=== PATIENT | female | born 1960 | race Caucasian/White ===

== ENCOUNTER → 2018-03-30 08:22 | Outpatient (CLI) | payer OTHER, SELFPAY ==
--- NOTE | 2018-03-30 08:29 | BI_ITS ---
MAMMOGRAPHY - BILATERAL SCREENING 3-D MARGOT SYNTHESIS REASON FOR EXAM: Female, 57 years old. Bilateral Screening 3-D tomosynthesis PERTINENT HISTORY: Family history of breast cancer in sister at age 38.. TECHNIQUE: 2-D mammograms and 3-D Margot synthesis of the breast (s) were performed. CAD was performed. COMPARISON: March 24, 2017, March 19, 2016 FINDINGS: The breast composition is there are stable lymph nodes in the left axilla. Scattered benign calcifications are seen. No dense spiculated masses or suspicious microcalcifications are identified. No architectural distortion is identified. There is no skin thickening or retraction. There has been no significant change since the prior study. BI/SCREENING MAMM (CAD), BILAT IMPRESSION: No mammographic signs of malignancy. Routine yearly mammograms recommended. ASSESSMENT CATEGORY: BIRADS Category 2: Benign. A letter regarding these results will be sent to the patient by the facility within 30 days. FOLLOW UP RECOMMENDATION: Yearly follow up mammogram recommended. (A) Approximately 10% of breast cancers are not detected by mammography. A normal mammogram should not delay biopsy of a clinically suspicious abnormality. Electronically Signed: Hitesh Nielsen MD at 10:43 EST , Service support ,
[2018-04-06 08:45] LABS: HPV APTIMA, High Risk Negative (Negative)
== END ==
PROVIDERS: Visit Provider Obstetrics & Gynecology
DX: Z12.31 Encounter for screening mammogram for malignant neoplasm of breast (principal); Z12.4 Encounter for screening for malignant neoplasm of cervix
CPT/HCPCS: 77063; 77067; 87624; 88175; G0145

== ENCOUNTER → 2018-04-19 14:26 | Outpatient (CLI) | payer OTHER, SELFPAY ==
[2018-03-30 09:22] VITALS: BMI 39.4
[2018-04-19 15:49] LABS: Anion Gap 9 (5-15); BUN 20 mg/dL (7-18); BUN/Creat Ratio 17.5 RATIO (10-20); Calcium,Total 9.6 mg/dL (8.5-10.1); Chloride 103 mmol/L (98-107); Creatinine, Serum 1.14 mg/dL (0.55-1.02); EST Glomerular Filtration Rate 52 mL/min (>60); Est Glom Filt Rate - Afr Amer 64 mL/min (>60); Glucose 98 mg/dL (74-106); Potassium 4.1 mmol/L (3.5-5.1); Sodium Level 141 mmol/L (136-145)
--- OUTSIDE RECORDS SUMMARY | 2018-06-24 11:53 | XMS RPT_ITS ---
:1960 Author Organization OHIP Care Team Providers Name Role Phone BROOK OROSCO (DRIVER LICENSE AGENT) Attending Unavailable NIRAJ ARIAS Referring Unavailable ESTEFANI PHAN Admitting Unavailable ESTEFANI PHAN Attending Unavailable BROOK OROSCO (DRIVER LICENSE AGENT) Referring Unavailable RIGO URIARTE Admitting Unavailable RIGO URIARTE Attending Unavailable RIGO URIARTE Primary Care Unavailable MARKIE RECINOS Consulting Unavailable PROVIDER, UNKNOWN Consulting Unavailable PROVIDER, UNKNOWN Consulting Unavailable PROVIDER, UNKNOWN Consulting Unavailable Naty Colbert Attending Unavailable Naty Colbert Attending Unavailable Lavinia Betancourt Attending Unavailable Rigo Uriarte Attending Unavailable Rigo Uriarte Referring Unavailable Markie Recinos Primary Care Unavailable Naty Colbert Attending Unavailable PROBLEMS PROBLEMS DATE TYPE CONDITION / CODE ATTENDING STATUS SOURCE 04/19/2018 Unknown N39.44 - Nocturnal Rigo Uriarte Active [place] enuresis / Community N39.44(ICD-10) Hospital Repository 03/30/2018 Unknown Z01.419 - Encounter [place] Active [place] for gynecological [facility] (general) (routine) Repository without abnormal findings / Z01.419(ICD-10) 03/30/2018 Unknown Z01.411 - Encounter Filemon, Active [place] for gynecological [facility] (general) (routine) Repository with abnormal findings / Z01.411(ICD-10) 03/30/2018 Unknown Z68.39 - Body mass [place] Active [place] index (BMI) [facility] 39.0-39.9, adult / Hospital Z68.39(ICD-10) Repository 02/16/2018 Active Encounter for ESTEFANI PHAN Active [facility] screening for [facility] malignant neoplasm Repository of colon / Z12.11(ICD-10) PROCEDURES PROCEDURES No Procedure Records FoundRESULTS RESULTS SODIUM; SERUM, Collected: 04/27/2018 Status: F Source: [facility] PLASMA 6:20 PM [facility] REPOSITORY TYPE CODE TESTS RESULT OUT OF REFERENCE UNITS RANGE LAB SODIUM(LOIN 136 - 145 mmol/l C) SODIUM 139 Performed By: #### [id number] #### [facility],[address] [place] [address] BASIC METABOLIC Collected: 04/19/2018 Status: F Source: [place] PROFILE (BMP) 2:41 PM [facility] REPOSITORY TYPE CODE TESTS RESULT OUT OF RANGE REFERENCE UNITS LAB L501.0100 74-106 mg/dL Normal GLU 98 Result Comment: Please note revised GLUCOSE reference range effective 2017. LAB L501.1000 7-18 mg/dL High BUN 20 LAB L501.1100 0.55-1.02 mg/dL High CREAT,SERUM 1.14 Result Comment: The validity of the calculated GFR AND GFRAA in patients over 70 years has not been determined. Clinical correlation is essential. LAB L501.1110 >60 mL/min Low EST GFR 52 Result Comment: Non- GFR Calc LAB L501.1115 >60 mL/min Normal EST GFR - AA 64 Result Comment: GFR Calc LAB L501.1300 10-20 RATIO Normal BUN/CRE 17.5 LAB L501.2200 8.5-10.1 mg/dL CA Normal 9.6 LAB L501.5300 136-145 mmol/L NA Normal 141 LAB L501.5600 3.5-5.1 mmol/L K Normal 4.1 LAB L501.5900 98-107 mmol/L CL Normal 103 LAB L501.6100 21.0-32.0 mmol/L Normal CO2 29.0 LAB L501.6200 5-15 Normal GAP 9 Performed By: #### L500.2500 #### [facility] [address] [place], [address] BOOM STICK MAN OFFICE VISIT Observed: 03/30/2018 Status: F Source: [place] REPORT 10:04 AM [facility] REPOSITORY [facility] [place] [address] [place] [address] OFFICE VISIT Date of Service: 03/30/18 MR#: [id number] Acct: [id number] Name: LUCIANA JUNIOR Rep #: [id number] : 1960 Provider: Naty Colbert MD Age/Sex: 57/F Location: [facility] Status: Signed Intake Vital Signs03/30/18 Height 5 ft 1 in 03/30/18 Weight: 209 lb 03/30/18 Body Mass Index (BMI) 39.4 03/30/18 Blood Pressure 112/78 Intake Visit Reasons: ANNUAL Stump Blower Required: No Is patient in pain?: No Allergies Penicillins Adverse Reaction (Unknown, Verified 03/30/18 09:24) unknown Medications mirabegron ER 50 mg tablet,extended release 24 hr 50 mg PO DAILY #30 tab 03/30/18 [Rx Confirmed 03/30/18] Is last menstrual period known: No Post menopausal: No Patient : No : No PFSH Medical History Urge incontinence (Acute) Family History Sister Breast cancer Social History number of children: 2 current occupational status: employed current occupation: [employer] Smoking Status: Never smoker alcohol intake: current alcohol intake frequency: holidays/special occasions only substance use type: does not use seatbelt use: always do you feel safe at home: Yes Pregancy History 2 Elective abortions Hx Para 2 Spontaneous abortions Past Pregnancies Del. DatName GA/WeeksOutcome Route [facility] LgAnesthesDel LocaProviderFOB e ht en tn Unknown Estella e 1988 Unknown Stefanie 1991 HPI ANNUAL: Details: LUCIANA JUNIOR is a 57 year old who presents for annual exam. co incomplete control of urinary urge incontinence- will even have spontaneous leakage overnight if had liquids too late. she had this worked up many years ago by urology. getting some more activity Last PAP: due History of abnormal PAP: no Last mammogram: done History of abnormal mammogram: no Colon cancer screening: up to date 2017- needs to have repeat in 1 year Other preventative health care screenings: dr recinos. has testing at work and normal Female Reproductive History Questions: Sexually active: No, Dyspareunia: No Menopausal Symptoms: No hot flashes, No night sweats, No weight change, No mood changes, No difficulty concentrating, No sleep problems, No change in libido ROS Const Constitutional: Denies night sweats Cardio Card: Denies chest pain Resp Resp: Denies dyspnea or cough GI GI: Reports as per HPI; denies bloating, abdominal pain, constipation, vomiting or nausea : Reports urinary incontinence; denies hot flashes or nipple discharge Skin Skin/Breast: Denies breast pain, breast skin changes, nipple discharge, breast lump or changing lesions Psych Psych: Denies difficulty concentrating or change in sex drive Exam Const General: cooperative, healthy appearing, comfortable, no acute distress, well developed, well groomed [facility] Head: normal to inspection, normocephalic Ears: hearing grossly normal bilaterally, external ears normal Nose: external nose normal Face and sinus: normal facial exam Neck Neck: normal visual inspection, full ROM, no lymphadenopathy Thyroid: thyroid normal Chest Chest palpation AND inspection: normal inspection of the chest Breast inspection: normal inspection of the breasts, normal inspection of the axillae Breast palpation: normal palpation of the breasts, normal palpation of the axillae, no axillary lymphadenopathy Resp Effort AND Inspection: normal respiratory effort GI Inspection: normal to inspection, non-distended Palpation: no guarding, soft, no hepatosplenomegaly General: bladder normal to palpation External Female Exam: normal external appearance, normal appearance of the urethra, no lesions Urethra: normal appearance of the urethra, normal palpation Speculum Exam - Vagina: normal appearance of the vagina, normal vaginal discharge Speculum Exam - Cervix: normal appearance of the cervix, no cervical discharge, no lesions, nontender Bimanual Exam- Vagina AND Uterus: No cervical tenderness, normal bimanual exam, uterine size normal, bladder normal to palpation, uterine mobility normal, uterine consistency normal, uterus non-tender, no cervical motion tenderness Bimanual Exam- Adnexa, other: normal adnexae, no adnexal masses, adnexae non-tender Skin General: no rashes or lesions noted Neuro General: alert, moves all extremities, no focal motor deficits Extrem General: no pedal edema, normal to inspection Psych Appearance: grossly normal Mental Status: mental status grossly normal Affect: normal affect Speech and Movement: speech and movement normal Attitude: cooperative Assessment AND Plan Problems 1. Encounter for gynecological examination with abnormal finding Z01.411 2. BMI 39.0-39.9,adult Z68.39 Plan Cervical cancer screening: [ ] Breast cancer screening: [ ] other health maintenance examination reviewed and orders placed if needed. Encouraged maintenance of a healthy weight and active lifestyle and handout given. Annual exam handout including recommendations for good health guidelines, Calcium/vitamin D recommendations, and basic screening information given. Problem list up to date, see problem list details for any additional plan information. Follow up in one year for annual health maintenance exam or sooner if needed. Orders Orders: Medications New: Coding Level of Care Code Off vis,est,prev 40-64yrs Diagnoses Encounter for gynecological examination with abnormal finding Z01.411 Gynecological examination findings: abnormal findings PRESENT BMI 39.0-39.9,adult Z68.39 03/30/18 1004 <Electronically signed by Naty Colbert MD> Date Naty Colbert MD Cosigner Signature: Date (if applicable) CC: PAP IG HPV APTIMA Collected: 03/30/2018 Status: F Source: [place] 16/18,45 9:40 AM [facility] REPOSITORY Order Comment: CYTOLOGY INFORMATION: - CLINICAL INFORMATION: ANNUAL - DATE LMP/MENOPAUSE: N/A - COLLECTION VIAL: Thin Prep Vial - AEROBICS TEACHER SOURCE: CERVICAL - COLLECTION TECHNIQUE: CX BROOM ONLY Specimen Comment: [id number] Specimen Comment: Source.............Cervix Specimen Comment: No. of containers..01 ThinPrep Vial TYPE CODE TESTS RESULT OUT OF REFERENCE UNITS RANGE LAB L7400.0800 . High DIAGN Comment Result Comment: EPITHELIAL CELL ABNORMALITY. ATYPICAL SQUAMOUS CELLS OF UNDETERMINED SIGNIFICANCE. LAB L7400.0900 . Normal ADEQ Comment Result Comment: Satisfactory for evaluation. Endocervical and/or squamous metaplastic cells (endocervical component) are present. LAB L7400.1400 . Normal PERFORM Comment Result Comment: Zainab Phillips, Pack Operator (ASCP) LAB L7400.1700 . Normal SIGN Comment Result Comment: Ashley Meng MD, Pathologist LAB L7400.1720 . Normal Path prov. Comment ICD9 Result Comment: R87.610 LAB L7400.2575 . Normal TEST METHOD Comment Result Comment: This liquid based ThinPrep(R) pap test was screened with the use of an image guided system. LAB L7400.2600 . Normal . COMM LAB L7400.2700 . Normal PAPSMR Comment Result Comment: The Pap smear is a screening test designed to aid in the detection of premalignant and malignant conditions of the uterine cervix. It is not a diagnostic procedure and should not be used as the sole means of detecting cervical cancer. Both false-positive and false-negative reports do occur. LAB L7400.2760 Negative Normal HPV APTIMA, Negative HR Result Comment: This test detects fourteen high-risk HPV types (16/18/31/33/35/39/45/ 51/52/56/58/59/66/68) without differentiation. Performed at: [address] [id number] City Driver: Mis Marin MD, Phone: [phone] Performed at: =G - [facility] [address], [place] [id number] City Driver: Mis Marin MD, Phone: [phone] Performed By: #### L7400.0280 #### [facility] (refer to report for specific site) refer to report for address and phone number SCREENING MAMM (CAD), Observed: 03/30/2018 Status: F Source: [place] 8:29 AM [facility] REPOSITORY [facility] Imaging Services [address] [place] [address] SCREENING MAMM (CAD), BILAT MR#: [id number] Acct: [id number] Name: LUCIANA JUNIOR Rep #: [id number] : 1960 F 57 From: Hitesh Nielsen MD PCP: Care Physician, No Primary Status: REG CLI Study: SCREENING MAMM (CAD), BILAT Date of Exam: 03/30/18 Exam# [id number] Ordering Dr: Naty Colbert MD MAMMOGRAPHY - BILATERAL SCREENING 3-D BURTON SYNTHESIS REASON FOR EXAM: Female, 57 years old. Bilateral Screening 3-D tomosynthesis PERTINENT HISTORY: Family history of breast cancer in sister at age 38.. TECHNIQUE: 2-D mammograms and 3-D Burton synthesis of the breast (s) were performed. CAD was performed. COMPARISON: March 24, 2017, March 19, 2016 FINDINGS: The breast composition is there are stable lymph nodes in the left axilla. Scattered benign calcifications are seen. No dense spiculated masses or suspicious microcalcifications are identified. No architectural distortion is identified. There is no skin thickening or retraction. There has been no significant change since the prior study. BI/SCREENING MAMM (CAD), BILAT IMPRESSION: No mammographic signs of malignancy. Routine yearly mammograms recommended. ASSESSMENT CATEGORY: BIRADS Category 2: Benign. A letter regarding these results will be sent to the patient by the facility within 30 days. FOLLOW UP RECOMMENDATION: Yearly follow up mammogram recommended. (A) Approximately 10% of breast cancers are not detected by mammography. A normal mammogram should not delay biopsy of a clinically suspicious abnormality. Electronically Signed: Hitesh Nielsen MD at 10:43 EST , Service support , CC: No Primary Care Physician; Naty Colbert MD Naval Aircrewman: Signed NURSING PROG Observed: 02/16/2018 Status: COMPLETED Source: [place] 10:45 AM [facility] REPOSITORY [place]NO ID: [id number] Author: Doris Ramirez RN Service: (none) Author Type: Registered Nurse Type: Nursing Progress Note Filed: 02/16/2018 4:45 PM Note Text: Patient did not experience a fall prior to discharge. Patient did not experience a burn prior to discharge. Doris Ramirez RN NURSING PROG Observed: 02/16/2018 Status: COMPLETED Source: [place] 9:55 AM [facility] REPOSITORY [facility] ID: [id number] Author: Doris Ramirez RN Service: (none) Author Type: Registered Nurse Type: Nursing Progress Note Filed: 02/16/2018 10:20 AM Note Text: Pt sitting up in bed tolerating snack and drink. Denies pain or nausea. Daughter at bedside. Abd soft and nondistended. No complaints. Awaiting Dr. Phan to speak with them. Doris Ramirez RN PT ED Observed: 02/16/2018 Status: COMPLETED Source: [place] 9:55 AM [facility] REPOSITORY [facility] ID: [id number] Author: Doris Ramirez RN Service: (none) Author Type: Registered Nurse Type: Patient Education Filed: 02/16/2018 10:21 AM Note Text: POST OP LEARNING RESPONSE INSTRUCTION PROVIDED TO: Patient and Daughter METHOD OF INSTRUCTION: Individual instruction Written instruction - handouts Verbal instruction PATIENT / FAMILY RESPONSE: Verbalizes understanding of: MEDICAL REGIMEN-Importance of following prescribed medical regimen POST-PROCEDURE INSTRUCTIONS-Correct actions to take to reduce post procedure complications WORSENING CONDITION-Signs and symptoms of a worsening condition that warrant a call to the physician FOLLOW-UP PLAN: Patient instructed to call with any further issues Follow up phone call. Contact information given. SUPPLEMENTAL MATERIAL: Procedure discharge instructions REFERRAL (RECOMMENDATION): None Electronically Signed By: Doris Ramirez RN In Department: AMBULATORY SURGERY NURSING PROG Observed: 02/16/2018 Status: COMPLETED Source: [place] 9:34 AM [facility] REPOSITORY [facility]NO ID: [id number] Author: Nasima Longoria RN Service: (none) Author Type: Registered Nurse Type: Nursing Progress Note Filed: 02/16/2018 9:38 AM Note Text: Patient arrived to PACU, on left side, abdomen soft. Patient resting comfortably. Passing flatus without problems. Nasima Longoria RN NURSING PROG Observed: 02/16/2018 Status: COMPLETED Source: [place] 9:32 AM [facility] REPOSITORY [facility]NO ID: [id number] Author: Kay Vázquez RN Service: Nursing Author Type: Registered Nurse Type: Nursing Progress Note Filed: 02/16/2018 9:32 AM Note Text: Patient did not experience a fall within the Intraoperative area. Patient did not experience a burn within the Intraoperative area. Kay Vázquez RN NURSING PROG Observed: 02/16/2018 Status: COMPLETED Source: [place] 9:00 AM [facility] REPOSITORY [facility] ID: [id number] Author: Doris Ramirez RN Service: (none) Author Type: Registered Nurse Type: Nursing Progress Note Filed: 02/16/2018 10:17 AM Note Text: [facility] PRE-OP NURSING HAND OFF NOTE SBAR Hand off given to Kay Vázquez RN. Hand off was communicated verbally and at the patient's bedside and all questions were answered. FALLS/NUNEZ Patient did not experience a fall within the Preoperative area. Patient did not experience a burn within the Preoperative area. Doris Ramirez RN PT ED Observed: 02/16/2018 Status: COMPLETED Source: [place] 8:40 AM [facility] REPOSITORY HNO ID: [id number] Author: Doris Ramirez RN Service: (none) Author Type: Registered Nurse Type: Patient Education Filed: 02/16/2018 8:45 AM Note Text: PRE OP LEARNING ASSESSMENT PROCEDURE/SURGERY: GI PROCEDURES: Colonoscopy READINESS TO LEARN COGNITIVE ABILITY: Alert and oriented MOTIVATION TO LEARN: Eager FAMILY SUPPORT: High - Very involved in pt care PATIENT LEARNS BEST BY: Multiple Methods FACTORS AFFECTING LEARNING: None PHYSICAL LIMITATIONS AFFECTING LEARNING: None Electronically Signed By: Doris Ramirez RN In Department: AMBULATORY SURGERY HOSP Observed: 01/27/2018 Status: COMPLETED Source: [place] 12:00 AM [facility] REPOSITORY Patient:Luciana Junior MRN: <[id number]> Height:5' 1(1.549 m) Weight:207 lb (93.895 kg) Outpatient Medications as of 02/16/18: oxybutynin ER (DITROPAN XL) 15 mg 24 hr Extended Rel Tab calcium, elemental, Tab Admission/Clinic Administered Medications as of 02/16/18: lactated ringers infusion Problem List: OAB (overactive bladder) [N32.81] Allergies: Penicillin G Date Verified: 02/16/18 Lab Values No results within the last 30 days for the following basenames: K,HCT No progress notes entered within the past 30 days HISTORY PHYSICAL Observed: 01/23/2018 Status: COMPLETED Source: [place] 2:40 PM [facility] REPOSITORY [facility] ID: [id number] Author: Brook Jerez) Kwesi Service: (none) Author Type: Nurse Practitioner Type: HANDP Filed: 01/23/2018 3:19 PM Note Text: Luciana Kirkb a 57 year old female who is returning for surveillance colonoscopy. Her PCP is Dr. Micah Recinos. The patient was seen by Dr. Arias for screening colonoscopy 02/09/13. The procedure report has been reviewed and findings as follows: Findings: ?? ? A flat polyp was found in the transverse colon. The polyp was 6 mm in ?? ? size. The polyp was removed with a piecemeal technique using a hot ?? ? snare. Resection and retrieval were complete. Estimated blood loss was ?? ? minimal. Estimated blood loss was minimal. Impression: ?- One 6 mm polyp in the transverse colon. Resected and ? retrieved. Recommendation: ? ? ?- Await pathology results. ? - Regular diet indefinitely. ? - Repeat colonoscopy in 5 years for surveillance after ? piecemeal polypectomy. FINAL DIAGNOSIS Transverse colon polyp, biopsy - Changes suggestive of mucosal prolapse. - Adenomatous epithelium not identified. Presenting complaint: The patient denies change in bowel habits, rectal bleeding or abdominal pain. Having a bowel movement at least once a day. She notes having hemorrhoids, but denies any blood or adverse effects. REVIEW OF SYSTEMS: GENERAL: No unplanned weight loss. RESPIRATORY: Negative for cough, hemoptysis, wheezing, COPD, dyspnea or shortness of breath CARDIOVASCULAR: Negative for chest pain, leg swelling, hypertension, CHF or palpitations GI: The patient states that her appetite has been good. She does get hungry. There has been no nausea, no vomiting. She denies dysphagia and denies odynophagia. There has not been indigestion or heartburn. There has not been regurgitation. Bowel habits have been regular. There has not been diarrhea. There has not been constipation. The patient denies rectal bleeding. There has not been melena. No abdominal pain. : Positive for incontinence nocturnal - on prescription. 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 LMP: Hit and miss - seeing Dr. Colbert. HEMATOLOGY/LYMPHOLOGY Negative for prolonged bleeding, bruising easily or swollen nodes ENDOCRINE: No thyroid or diabetes. NEURO: No history of headaches, syncope, paralysis, seizures or tremors All other reviewed and negative other than HPI. PAST MEDICAL HISTORY Diagnosis Date - Dysplasia of cervix, unspecified 2001 - OAB (overactive bladder) urge incontinence PAST SURGICAL HISTORY Procedure Laterality Date - COLONOSCOP W/ OR W/O [facility] SPEC 02/09/13 Colonoscopy - VULVA/PERINE LOOP ELECTRO EXCIS 05/09/2001 [facility] HISTORY Problem Relation Age of Onset - Cancer Father lung- - Breast Cancer Sister - Ischemic Heart Disease Paternal Grandfather mi - Hypertension Brother - Cancer Paternal Aunt Current Outpatient Prescriptions: oxybutynin ER (DITROPAN XL) 15 mg 24 hr Extended Rel Tab Take 1 tablet by mouth once daily. Disp: 30 tablet Rfl: 12 calcium, elemental, Tab Take 1 tablet by mouth twice daily. Disp: Rfl: 0 No current facility-administered medications for this visit. SOCIAL HISTORY: Patient is single. She has never smoked and reports her alcohol use as very rarely. PHYSICAL EXAMINATION: Blood pressure 143/93, pulse 62, height 154.9 cm (5' 1), weight 93.9 kg (207 lb), last menstrual period 01/02/2018. General Appearance: Well appearing, alert, in no acute distress, well-hydrated, well nourished. Skin: Skin color, texture, turgor normal, no suspicious rashes or lesions. Head: Normocephalic, no masses, lesions or abnormalities. Eyes: Anicteric sclera. Neck: Supple, no adenopathy; thyroid symmetric, normal size. Lungs: Lungs clear to auscultation. No wheezing, rhonchi, rales. Heart: RRR without murmur. Abdomen: Normal abdominal exam, Abdomen soft, non-tender. Bowel sounds normal. No masses, organomegaly. Extremities: No deformities, edema. Peripheral Pulses: Normal. Neurologic: Gait normal. Reflexes normal and symmetric. Sensation grossly intact. Impression: colorectal cancer screening Plan: This patient will be scheduled for a colonoscopy, using Miralax and Dulcolax as the prep. The preparation, as well as the procedure, has been explained in detail. The risks, benefits, anticipated outcomes and possible complications were mentioned. I explained the procedure in understandable terms and the patient was given printed material concerning the planned procedure. The patient had the opportunity to ask questions concerning the planned procedure. The patient freely consents to the planned procedure. The patient is asked to call with any questions for concerns, or should there be any change in health status between now and the scheduled procedure. MA I have personally interviewed and examined this patient. I have read the information the MA documented in this encounter. I spent 25 minutes in the visit, with more than 50% of the total [id number] time of the visit in counseling / coordination of care. Brook Orosco RN APRN.ARJUN WEIR Observed: 01/23/2018 Status: COMPLETED Source: [place] 2:40 PM [facility] REPOSITORY Office Visit ([facility]) LUCIANA JUNIOR ([id number]) 1960 F Date Time Provider Department 01/23/18 2:40 PM BROOK OROSCO (MAGDY) [facility] During your visit today, we recorded the following information about you: Pulse Blood pressure Weight Height 62/minute 143/93 93.9 kg 1.549 m Last Period 01/02/18 Brook Orosco RN APRN.ARJUN 01/23/2018 3:19 PM Signed Luciana Sandie Junior a 57 year old female who is returning for surveillance colonoscopy. Her PCP is Dr. Micah Recinos. The patient was seen by Dr. Arias for screening colonoscopy 02/09/13. The procedure report has been reviewed and findings as follows: Findings: ?? ? A flat polyp was found in the transverse colon. The polyp was 6 mm in ?? ? size. The polyp was removed with a piecemeal technique using a hot ?? ? snare. Resection and retrieval were complete. Estimated blood loss was ?? ? minimal. Estimated blood loss was minimal. Impression: ?- One 6 mm polyp in the transverse colon. Resected and ? retrieved. Recommendation: ? ? ?- Await pathology results. ? - Regular diet indefinitely. ? - Repeat colonoscopy in 5 years for surveillance after ? piecemeal polypectomy. FINAL DIAGNOSIS Transverse colon polyp, biopsy - Changes suggestive of mucosal prolapse. - Adenomatous epithelium not identified. Presenting complaint: The patient denies change in bowel habits, rectal bleeding or abdominal pain. Having a bowel movement at least once a day. She notes having hemorrhoids, but denies any blood or adverse effects. REVIEW OF SYSTEMS: GENERAL: No unplanned weight loss. RESPIRATORY: Negative for cough, hemoptysis, wheezing, COPD, dyspnea or shortness of breath CARDIOVASCULAR: Negative for chest pain, leg swelling, hypertension, CHF or palpitations GI: The patient states that her appetite has been good. She does get hungry. There has been no nausea, no vomiting. She denies dysphagia and denies odynophagia. There has not been indigestion or heartburn. There has not been regurgitation. Bowel habits have been regular. There has not been diarrhea. There has not been constipation. The patient denies rectal bleeding. There has not been melena. No abdominal pain. : Positive for incontinence nocturnal - on prescription. 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 LMP: Hit and miss - seeing Dr. Colbert. HEMATOLOGY/LYMPHOLOGY Negative for prolonged bleeding, bruising easily or swollen nodes ENDOCRINE: No thyroid or diabetes. NEURO: No history of headaches, syncope, paralysis, seizures or tremors All other reviewed and negative other than HPI. PAST MEDICAL HISTORY Diagnosis Date - Dysplasia of cervix, unspecified 2001 - OAB (overactive bladder) urge incontinence PAST SURGICAL HISTORY Procedure Laterality Date - COLONOSCOP W/ OR W/O BRS SPEC 02/09/13 Colonoscopy - VULVA/PERINE LOOP ELECTRO EXCIS 05/09/2001 LEEP FAMILY HISTORY Problem Relation Age of Onset - Cancer Father lung- - Breast Cancer Sister - Ischemic Heart Disease Paternal Grandfather mi - Hypertension Brother - Cancer Paternal Aunt Current Outpatient Prescriptions: oxybutynin ER (DITROPAN XL) 15 mg 24 hr Extended Rel Tab Take 1 tablet by mouth once daily. Disp: 30 tablet Rfl: 12 calcium, elemental, Tab Take 1 tablet by mouth twice daily. Disp: Rfl: 0 No current facility-administered medications for this visit. SOCIAL HISTORY: Patient is single. She has never smoked and reports her alcohol use as very rarely. PHYSICAL EXAMINATION: Blood pressure 143/93, pulse 62, height 154.9 cm (5' 1), weight 93.9 kg (207 lb), last menstrual period 01/02/2018. General Appearance: Well appearing, alert, in no acute distress, well-hydrated, well nourished. Skin: Skin color, texture, turgor normal, no suspicious rashes or lesions. Head: Normocephalic, no masses, lesions or abnormalities. Eyes: Anicteric sclera. Neck: Supple, no adenopathy; thyroid symmetric, normal size. Lungs: Lungs clear to auscultation. No wheezing, rhonchi, rales. Heart: RRR without murmur. Abdomen: Normal abdominal exam, Abdomen soft, non-tender. Bowel sounds normal. No masses, organomegaly. Extremities: No deformities, edema. Peripheral Pulses: Normal. Neurologic: Gait normal. Reflexes normal and symmetric. Sensation grossly intact. Impression: colorectal cancer screening Plan: This patient will be scheduled for a colonoscopy, using Miralax and Dulcolax as the prep. The preparation, as well as the procedure, has been explained in detail. The risks, benefits, anticipated outcomes and possible complications were mentioned. I explained the procedure in understandable terms and the patient was given printed material concerning the planned procedure. The patient had the opportunity to ask questions concerning the planned procedure. The patient freely consents to the planned procedure. The patient is asked to call with any questions for concerns, or should there be any change in health status between now and the scheduled procedure. FLORECITA I have personally interviewed and examined this patient. I have read the information the MA documented in this encounter. I spent 25 minutes in the visit, with more than 50% of the total [id number] time of the visit in counseling / coordination of care. Brook Orosco RN CABLE ASSEMBLER.ARJUN Orosco RN APRN.ARJUN 01/23/2018 3:05 PM Signed Please follow the provided instructions for colonoscopy. You will be using Miralax and Dulcolax, as the laxative during the preparation. You may start the laxative as early as 1:00 in the afternoon. Please call the fuse cup expander, at the number provided, to schedule your procedure. The endoscopy staff will call you the day before the procedure with specific on arrival time. (Tuesday for Tuesday procedures). Hugo 02/13 Mckenna 02/14 AND . Sylvester is 02/15 AND 02/16 Referring Provider: NIRAJ ARIAS [[id number]] Allergies As of Date: 01/23/2018 Noted Allergy Reaction PENICILLIN G 01/19/2005 2 - Rash Date Reviewed: 01/23/2018 Reviewed by: Seema Haro Ma - Fully Assessed Reason for Visit: Colonoscopy Consult [Other] Primary Visit Diagnosis:History of colonic polyps [Z86.010] Order(s):COLONOSCOPY, SCREENING, HIGH RISK [[id number]] Order #: [id number] FUTURE Prescriptions as of 01/23/2018 Sig: OXYBUTYNIN CHLORIDE ER 15 MG * Take 1 tablet by mouth once d* CALCIUM 500 MG TABLET Take 1 tablet by mouth twice * Problem List As Of Date 01/23/2018 Noted Resolved OAB (overactive bladder) [N32.81] INVALID FOR* Other instructions from your clinician: Please follow the provided instructions for colonoscopy. You will be using Miralax and Dulcolax, as the laxative during the preparation. You may start the laxative as early as 1:00 in the afternoon. Please call the fuse cup expander, at the number provided, to schedule your procedure. The endoscopy staff will call you the day before the procedure with specific on arrival time. (Tuesday for Tuesday procedures). Hugo 02/13 Mckenna 02/14 AND . Sylvester is 02/15 AND 02/16 Encounter Status:Closed by BROOK OROSCO CNP on 01/23/18 ALLERGIES ALLERGIES DATE TYPE / CODE NAME / CODE REACTION SEVERITY SOURCE 03/30/2018 Drug Penicillins/F0010 Unknown Unknown Tadeo Allergy/416 41815(RXNORM) [facility] [id number]([facility] ED CT) Repository 01/19/2005 DRUG PENICILLIN G RASH Med [facility] INGREDI/[address] [place] [id number]([facility] ED CT) ENCOUNTERS ENCOUNTERS ADMIT/DISCHARGE ACCOUNT ADMITTING ENCOUNTER LOCATION SOURCE NUMBER CLASS 04/27/2018/04/27/19 [id number] [place], Ambulatory [facility] Repository 04/19/2018 [id number] [facility] ing:MTLAB Repository 04/19/2018 [id number] Ambulatory BMSBuilding:Jamila Piedra MS.[facility] Repository 03/30/2018/03/30/20 [id number] Ambulatory BMSBuilding:Jamila Piedra 18 MS.[facility] Repository 03/30/2018 [id number] [facility] ing:OPBI Repository 03/22/2018 [id number] Ambulatory BMSBuilding:Jamila Piedra MS.[facility] Repository 02/16/2018/02/17/20 [id number] ESTEFANI PHAN Ambulatory [address] Repository 01/23/2018/01/25/20 [id number] Ambulatory [address] Repository PAYERS PAYERS ENCOUNTER GUARANTOR PAYER SUBSCRIBER SOURCE 04/27/2018 LUCIANA HOLCOMBDOB: Primary LUCIANA A James Antony [id number] Insurance:MEDICAL HOLCOMBDOB: [facility] [id number] [address] [place]ository [place] [address]Cfn: Number: [address], [id number] [phone] () Date:Plan Name: 04/19/2018 LUCIANA A Primary LUCIANA A Tadeo [id number] Insurance:MEDICAL HOLCOMBDOB: [address] [id number] [facility] [address]Cix: Number: Repository [id number] (HP) Date:2018-04-19[address] [place] [id number]: 04/19/2018 Secondary NOT GIVENUNK Tadeo Insurance:SELF PAY [facility] Number: Effective Repository Date:2018-04-19 04/19/2018 LUCIANA [id number] Primary LUCIANA HOLCOMBDOB: [address] Insurance:MEDICAL [id number] [address]Xvg: Number: Repository [id number] (HP) Date:2018-04-19[address] [place] [id number]: 04/19/2018 Secondary NOT GIVENUNK Tadeo Insurance:SELF PAY [facility] Number: Effective Repository Date:2018-04-19 03/30/2018 LUCIANA [id number] Primary LUCIANA HOLCOMBDOB: [place] [address] Insurance:MEDICAL [id number] [address]Ugg: Number: Repository [id number] (HP) Date:2017-11-30[address] [place] [id number]: 03/30/2018 Secondary NOT GIVENUNK [place] Insurance:SELF PAY [facility] Number: Effective Repository Date:2018-03-30 03/30/2018 LUCIANA [id number] Primary LUCIANA HOLCOMBDOB: [address] Insurance:MEDICAL [id number] [address]Xvq: Number: Repository [id number] (HP) Date:2017-11-30[address] [place] [id number]: 03/30/2018 Secondary NOT GIVENUNK [place] Insurance:SELF PAY [facility] Number: Effective Repository Date:2017-11-30 03/22/2018 LUCIANA [id number] Primary NOT GIVENUNK [address] Insurance:SELF PAY [address] [address]Tkz: Number: Effective Repository Date:2017-11-30 ()
== END ==
PROVIDERS: Family Provider Family Medicine; PCP Family Medicine; Referring Provider Urology; Visit Provider Urology
DX: N39.44 Nocturnal enuresis (principal)
CPT/HCPCS: 36415; 80048

== ENCOUNTER → 2019-10-03 07:20 | Outpatient (CLI) | payer OTHER, SELFPAY ==
[2018-03-30 09:22] VITALS: BMI 39.4
--- NOTE | 2019-10-03 07:20 | BI_ITS ---
MAMMOGRAPHY - BILATERAL SCREENING REASON FOR EXAM: Female, 59 years old. Routine annual screening examination. PERTINENT HISTORY: Sister with breast cancer. TECHNIQUE: Digital bilateral breast margot (3D mammographic acquisition) in the CC and MLO projections. 2-D mediolateral oblique (MLO) and craniocaudad (CC) views of both breasts were obtained. CAD: Full Field Digital Mammography with Computer Added Detection was performed. COMPARISON: Comparison is made with prior examination dated March 30, 2018. FINDINGS: Breast Composition: The breasts are heterogeneously dense, which may obscure small masses. There are no dominant masses or suspicious calcifications. No other significant abnormalities are identified. There has been no significant change since the prior study. BI/SCREEN MAMM (CAD) W/MARGOT BILAT IMPRESSION: Stable bilateral screening mammogram. Yearly follow-up mammogram recommended. (A) ASSESSMENT CATEGORY: BIRADS Category 1: Negative. A letter regarding these results will be sent to the patient by the facility within 30 days. Approximately 10% of breast cancers are not detected by mammography. A normal mammogram should not delay biopsy of a clinically suspicious abnormality. [id number] Electronically Signed: Alonso Quintero, at 8:30 EDT , Service support ,
[2019-10-03 09:26] LABS: Vitamin D,25 Hydroxy 56.8 ng/mL
[2019-10-03 09:34] LABS: ALB/GLOB Ratio 1.1 RATIO (0.9-2.4); AST(SGOT) 22 U/L (15-37); Alanine Aminotransfer ALT/SGPT 30 U/L (13-56); Alkaline Phosphatase 62 U/L (45-117); Anion Gap 5 (5-15); BUN 27 mg/dL (7-18); BUN/Creat Ratio 28.1 RATIO (10-20); Calcium,Total 8.9 mg/dL (8.5-10.1); Chloride 104 mmol/L (98-107); Cholesterol 254 mg/dL (200); Creatinine, Serum 0.96 mg/dL (0.55-1.02); EST Glomerular Filtration Rate 64 mL/min (>60); Est Glom Filt Rate - Afr Amer 77 mL/min (>60); Globulin 3.8 g/dL (2.2-4.2); Glucose 104 mg/dL (74-106); High Density Lipoprotein 96 mg/dL; Potassium 4.1 mmol/L (3.5-5.1); Protein, Total 7.8 g/dL (6.4-8.2); Sodium Level 140 mmol/L (136-145); Thyroid Stim Hormone (TSH) 2.13 uIU/mL (0.358-3.74); Triglycerides 56 mg/dL; Very Low Density Lipoprotein 11 mg/dL (5-40)
[2019-10-11 05:46] LABS: HPV APTIMA, High Risk Negative (Negative)
== END ==
PROVIDERS: Family Provider Family Medicine; PCP Family Medicine; Referring Provider Obstetrics & Gynecology; Visit Provider Obstetrics & Gynecology
DX: Z12.31 Encounter for screening mammogram for malignant neoplasm of breast (principal); Z13.1 Encounter for screening for diabetes mellitus; Z13.21 Encounter for screening for nutritional disorder; Z13.220 Encounter for screening for lipoid disorders
CPT/HCPCS: 36415; 77063; 77067; 80053; 80061; 82306; 84443; 87624; 88175; G0145

== ENCOUNTER → 2020-10-09 07:42 | Outpatient (CLI) | payer OTHER, SELFPAY ==
[2019-10-03 08:15] VITALS: BMI 39.4
--- NOTE | 2020-10-09 07:47 | BI_ITS ---
MAMMOGRAPHY - BILATERAL SCREENING REASON FOR EXAM: Female, 60 years old. Routine annual screening examination. PERTINENT HISTORY: Sister with breast cancer. TECHNIQUE: Digital bilateral breast margot (3D mammographic acquisition) in the CC and MLO projections. 2-D mediolateral oblique (MLO) and craniocaudad (CC) views of both breasts were obtained. CAD: Full Field Digital Mammography with Computer Added Detection was performed. COMPARISON: Comparison is made with prior study dated 10/03/2019 and 03/30/2018. FINDINGS: Breast Composition: The breasts are heterogeneously dense, which may obscure small masses. There are no dominant masses or suspicious calcifications. No other significant abnormalities are identified. There has been no significant change since the prior study. BI/SCRN MAMM (CAD)W/MARGOT BILAT IMPRESSION: Stable bilateral screening mammogram. Yearly follow-up mammogram recommended. (A) ASSESSMENT CATEGORY: BIRADS Category 1: Negative. A letter regarding these results will be sent to the patient by the facility within 30 days. Approximately 10% of breast cancers are not detected by mammography. A normal mammogram should not delay biopsy of a clinically suspicious abnormality. [id number] Electronically Signed: Alonso Quintero MD at 8:58 EDT , Service support ,
== END ==
PROVIDERS: PCP Family Medicine; Referring Provider Obstetrics & Gynecology; Visit Provider Obstetrics & Gynecology
DX: Z12.31 Encounter for screening mammogram for malignant neoplasm of breast (principal); N93.0 Postcoital and contact bleeding
CPT/HCPCS: 77063; 77067; 87070; 87205

== ENCOUNTER → 2020-10-16 18:21 | Outpatient (CLI) | payer OTHER, SELFPAY ==
[2020-10-09 08:23] VITALS: BMI 39.4
--- NOTE | 2020-10-16 18:34 | US_ITS ---
INDICATION: POST COITAL BLEEDING EXAMINATION: US Pelvis Non-OB Complete TECHNIQUE: Transabdominal and transvaginal pelvic ultrasound was performed. Grayscale, spectral waveform, and color flow Doppler evaluation of the adnexa. COMPARISON: None. FINDINGS: UTERUS: Anteverted. The uterus measures 7.8 x 4.3 x 2.3 cm. There is no uterine mass. The endometrial stripe measures 3 mm in AP diameter which is within normal limits. RIGHT OVARY: Measures 2.6 x 2 x 1 cm. Non-enlarged, normal echogenicity. There is normal arterial inflow and venous outflow present in the right ovary. LEFT OVARY: Measures 2.5 x 2 x 1.3 cm. Non-enlarged, normal echogenicity. There is normal arterial inflow and venous outflow present in the left ovary. FREE FLUID: None. US/Pelvic (Non ) IMPRESSION: Normal pelvic ultrasound. Electronically Signed: Aayush Wang MD at 23:20 EDT Tel , Service support ,
--- NOTE | 2020-10-16 18:46 | US_ITS ---
INDICATION: POST COITAL BLEEDING EXAMINATION: US Pelvis Non-OB Complete TECHNIQUE: Transabdominal and transvaginal pelvic ultrasound was performed. Grayscale, spectral waveform, and color flow Doppler evaluation of the adnexa. COMPARISON: None. FINDINGS: UTERUS: Anteverted. The uterus measures 7.8 x 4.3 x 2.3 cm. There is no uterine mass. The endometrial stripe measures 3 mm in AP diameter which is within normal limits. RIGHT OVARY: Measures 2.6 x 2 x 1 cm. Non-enlarged, normal echogenicity. There is normal arterial inflow and venous outflow present in the right ovary. LEFT OVARY: Measures 2.5 x 2 x 1.3 cm. Non-enlarged, normal echogenicity. There is normal arterial inflow and venous outflow present in the left ovary. FREE FLUID: None. US/Transvaginal Non- IMPRESSION: Normal pelvic ultrasound. Electronically Signed: Aayush Wang MD at 23:20 EDT Tel , Service support ,
== END ==
PROVIDERS: PCP Family Medicine; Referring Provider Obstetrics & Gynecology; Visit Provider Obstetrics & Gynecology
DX: N93.0 Postcoital and contact bleeding (principal)
CPT/HCPCS: 76830; 76856

== ENCOUNTER → 2021-10-15 | Outpatient (CLI) | payer OTHER, SELFPAY ==
[2020-10-09 08:23] VITALS: BMI 39.4
--- NOTE | 2021-10-15 08:08 | BI_ITS ---
MAMMOGRAPHY - BILATERAL SCREENING REASON FOR EXAM: Female, 61 years old. Routine annual screening examination. PERTINENT HISTORY: Sister with breast cancer. TECHNIQUE: Digital bilateral breast margot (3D mammographic acquisition) in the CC and MLO projections. 2-D mediolateral oblique (MLO) and craniocaudad (CC) views of both breasts were obtained. CAD: Full Field Digital Mammography with Computer Added Detection was performed. COMPARISON: Comparison is made with prior study dated 10/09/2020 and 10/03/2019. FINDINGS: Breast Composition: The breasts are heterogeneously dense, which may obscure small masses. There are no dominant masses or suspicious calcifications. No other significant abnormalities are identified. There has been no significant change since the prior study. BI/SCRN MAMM (CAD)W/MARGOT BILAT IMPRESSION: Stable bilateral screening mammogram. Yearly follow-up mammogram recommended. (A) ASSESSMENT CATEGORY: BIRADS Category 1: Negative. A letter regarding these results will be sent to the patient by the facility within 30 days. Approximately 10% of breast cancers are not detected by mammography. A normal mammogram should not delay biopsy of a clinically suspicious abnormality. [id number] Electronically Signed: Alonso Quintero MD at 8:42 EDT ,
[2021-10-15 10:12] LABS: Cholesterol 282 mg/dL (200); Glucose 106 mg/dL (74-106); High Density Lipoprotein 95 mg/dL; Triglycerides 107 mg/dL; Very Low Density Lipoprotein 21 mg/dL (5-40)
== END | disposition home or self-care (01) ==
PROVIDERS: PCP Family Medicine; Referring Provider Obstetrics & Gynecology; Visit Provider Obstetrics & Gynecology
DX: Z12.31 Encounter for screening mammogram for malignant neoplasm of breast (principal); Z13.1 Encounter for screening for diabetes mellitus; Z13.220 Encounter for screening for lipoid disorders
CPT/HCPCS: 36415; 77063; 77067; 80061; 82947

== ENCOUNTER → 2022-10-18 | Outpatient (CLI) | payer OTHER, SELFPAY ==
--- NOTE | 2022-10-18 08:00 | BI_ITS ---
MAMMOGRAPHY - BILATERAL SCREENING 3-D TOMOSYNTHESIS REASON FOR EXAM: Female, 62 years old. Routine screening PERTINENT HISTORY: Sister with breast cancer.. TECHNIQUE: 2-D mammograms and 3-D Tomosynthesis of the breast (s) were performed. CAD was performed. COMPARISON: 10/09/2020 FINDINGS: The breast composition is heterogeneously dense that can obscure small breast masses. Scattered benign calcifications are seen. No dense spiculated masses or suspicious microcalcifications are identified. No architectural distortion is identified. There is no skin thickening or retraction. There has been no significant change since the prior study. BI/SCRN MAMM (CAD)W/MARGOT BILAT IMPRESSION: No mammographic signs of malignancy. Routine yearly mammograms recommended. ASSESSMENT CATEGORY: BIRADS Category 2: Benign. A letter regarding these results will be sent to the patient by the facility within 30 days. FOLLOW UP RECOMMENDATION: Yearly follow up mammogram recommended. (A) Approximately 10% of breast cancers are not detected by mammography. A normal mammogram should not delay biopsy of a clinically suspicious abnormality. Electronically Signed: Freddy Sanders MD at 9:40 EDT ,
== END | disposition home or self-care (01) ==
LOC: OPBI 07:55
PROVIDERS: PCP Family Medicine; Referring Provider Obstetrics & Gynecology; Visit Provider Obstetrics & Gynecology
DX: Z12.31 Encounter for screening mammogram for malignant neoplasm of breast (principal)
CPT/HCPCS: 77063; 77067

== ENCOUNTER → 2023-10-21 | Outpatient (CLI) | payer OTHER, SELFPAY ==
--- NOTE | 2023-10-21 08:36 | BI_ITS ---
MAMMOGRAPHY - BILATERAL SCREENING REASON FOR EXAM: Female, 63 years old. Routine annual screening examination. PERTINENT HISTORY: Sister with breast cancer. TECHNIQUE: Digital bilateral breast margot (3D mammographic acquisition) in the CC and MLO projections. 2-D mediolateral oblique (MLO) and craniocaudad (CC) views of both breasts were obtained. CAD: Full Field Digital Mammography with Computer Added Detection was performed. COMPARISON: Comparison is made with prior study dated October 18, 2022 and October 15, 2021. FINDINGS: Breast Composition: The breasts are heterogeneously dense, which may obscure small masses. There are no dominant masses or suspicious calcifications. No other significant abnormalities are identified. There has been no significant change since the prior study. BI/SCRN MAMM (CAD)W/MARGOT BILAT IMPRESSION: Stable bilateral screening mammogram. Yearly follow-up mammogram recommended. (A) ASSESSMENT CATEGORY: BIRADS Category 1: Negative. A letter regarding these results will be sent to the patient by the facility within 30 days. Approximately 10% of breast cancers are not detected by mammography. A normal mammogram should not delay biopsy of a clinically suspicious abnormality. [id number] Electronically Signed: Alonso Quintero MD at 9:11 EDT ,
== END | disposition home or self-care (01) ==
LOC: OPBI 08:19
PROVIDERS: PCP Family Medicine; Referring Provider Obstetrics & Gynecology; Visit Provider Obstetrics & Gynecology
DX: Z12.31 Encounter for screening mammogram for malignant neoplasm of breast (principal)
CPT/HCPCS: 77063; 77067

== ENCOUNTER → 2024-10-22 | Outpatient (CLI) | payer OTHER, SELFPAY ==
--- NOTE | 2024-10-22 08:35 | BI_ITS ---
EXAM: SCRN MAMM (CAD)W/MARGOT BILAT DATE: 10/22/2024 CLINICAL HISTORY: F, Age 64 y/o , BREAST CANCER SCREENING TECHNIQUE: SCRN MAMM (CAD)W/MARGOT BILAT COMPARISON: Prior exam(s) dated 10/21/2023 and 10/18/2022. FINDINGS: TISSUE DENSITY: The breasts are heterogeneously dense, which may obscure small masses. Bilateral Breast Mammographic Findings: Benign round microcalcifications are seen in both breasts. There are no suspicious masses, suspicious clustered microcalcifications, architectural distortion or secondary signs of malignancy identified in either breast. BI/SCRN MAMM (CAD)W/MARGOT BILAT IMPRESSION: Benign mammogram. OVERALL FINAL ASSESSMENT BI-RADS 2: BENIGN RECOMMENDATION: Routine annual follow-up in 1 Year A letter with findings and recommendations will be mailed to the patient. Reading Location: [id number]
[2024-10-24 10:08] LABS: HPV APTIMA, High Risk Negative (Negative)
== END | disposition home or self-care (01) ==
LOC: OPBI 08:34
PROVIDERS: PCP Family Medicine; Referring Provider Obstetrics & Gynecology; Visit Provider Obstetrics & Gynecology
DX: Z12.31 Encounter for screening mammogram for malignant neoplasm of breast (principal)
CPT/HCPCS: 77063; 77067; 87624; 88175; G0145

== ENCOUNTER → 2024-10-25 | Outpatient (CLI) | payer OTHER, SELFPAY ==
[2024-10-25 09:09] LABS: Hematocrit 34.3 % (37-47); Hemoglobin 11.4 g/dL (12.0-15.0); Immature Granulocytes Count 0.030 X10^3/uL (0.0-0.0); Mean Corp Hgb Conc 33.2 g/dL (32-36); Mean Corpuscular Volume 89.3 fL (81-99); Mean Platelet Vol. 8.9 fl (6.2-12.0); NRBC Flagged by Analyzer 0 % (0-5); Platelet Count 272 K/mm3 (150-450); RBC Distribution Width CV 13.1 % (11.6-14.6); RBC Distribution Width SD 42.6 fl (35.1-43.9); Red Blood Count 3.84 M/mm3 (4.2-5.4); White Blood Count 5.1 K/mm3 (4.4-11.0)
[2024-10-25 09:46] LABS: AST(SGOT) 26 U/L (<=31); Alanine Aminotransfer ALT/SGPT 18 U/L (<=34); Albumin, Serum 4.3 g/dL (3.4-4.8); Alkaline Phosphatase 60 U/L (35-104); Anion Gap 11 (5-15); BUN 23 mg/dL (4-19); BUN/Creat Ratio 22.5 RATIO (10-20); Calcium,Total 9.5 mg/dL (7.6-11.0); Carbon Dioxide 23.5 mmol/L (21.0-32.0); Chloride 105 mmol/L (98-108); Cholesterol 273 mg/dL (<=200); Globulin 2.9 g/dL (2.2-4.2); Glucose 110 mg/dL (70-99); Low Density Lipoprotein Calc. 161 mg/dL; Potassium 4.8 mmol/L (3.3-5.1); Triglycerides 54 mg/dL; Very Low Density Lipoprotein 11 mg/dL (5-40); Vitamin D,25 Hydroxy 59.7 ng/mL (30-100); cholesterol:hdl ratio screen 2.70
== END | disposition home or self-care (01) ==
PROVIDERS: PCP Family Medicine; Visit Provider Obstetrics & Gynecology
DX: Z00.00 Encounter for general adult medical examination without abnormal findings (principal); Z13.1 Encounter for screening for diabetes mellitus; Z13.220 Encounter for screening for lipoid disorders; I10 Essential (primary) hypertension; Z13.29 Encounter for screening for other suspected endocrine disorder; Z13.21 Encounter for screening for nutritional disorder
CPT/HCPCS: 36415; 80053; 80061; 82306; 83036; 84443; 85025